=== PATIENT | female | born 1995 | race Caucasian/White ===

== ENCOUNTER → 2021-11-18 16:26 | Outpatient (BNVA) | payer OTHER, SELFPAY | PROVIDERS: Family Provider Family Medicine; Visit Provider Obstetrics & Gynecology | DX: N93.9 Abnormal uterine and vaginal bleeding, unspecified (principal) | CPT/HCPCS: 82670; 83001; 84146; 84443; 85025 ==

== ENCOUNTER → 2021-12-01 08:40 | Outpatient (BNVA) | payer OTHER, SELFPAY | PROVIDERS: Family Provider Family Medicine; Visit Provider Obstetrics & Gynecology | DX: N92.6 Irregular menstruation, unspecified (principal) | CPT/HCPCS: 76830 ==

== ENCOUNTER → 2022-05-14 12:54 | Outpatient (BNVA) | payer OTHER, BC, SELFPAY | PROVIDERS: Family Provider Family Medicine; Visit Provider Obstetrics & Gynecology | DX: N97.9 Female infertility, unspecified (principal); N83.291 Other ovarian cyst, right side | CPT/HCPCS: 76830; 76856 ==

== ENCOUNTER → 2022-05-21 08:16 | Outpatient (BNVA) | payer OTHER, SELFPAY | PROVIDERS: Family Provider Family Medicine; Visit Provider Obstetrics & Gynecology | DX: N97.9 Female infertility, unspecified (principal) | CPT/HCPCS: 84144 ==

== ENCOUNTER → 2022-06-15 09:35 | Outpatient (BNVA) | payer OTHER, BC, SELFPAY | PROVIDERS: Family Provider Family Medicine; Visit Provider Obstetrics & Gynecology | DX: N97.9 Female infertility, unspecified (principal) | CPT/HCPCS: 76830 ==

== ENCOUNTER 2022-06-22 09:56 | Outpatient (CLI) | payer OTHER, BC, SELFPAY ==
[2022-06-22 10:43] LABS: Progesterone 0.635 ng/mL
== END 2022-06-22 09:57 | disposition home or self-care (01) ==
PROVIDERS: Family Provider Family Medicine; Visit Provider Obstetrics & Gynecology
DX: N97.9 Female infertility, unspecified (principal)
CPT/HCPCS: 36415; 84144

== ENCOUNTER → 2022-07-16 08:47 | Outpatient (BNVA) | payer OTHER, BC, SELFPAY | PROVIDERS: Family Provider Family Medicine; Visit Provider Obstetrics & Gynecology | DX: N97.9 Female infertility, unspecified (principal) | CPT/HCPCS: 76830 ==

== ENCOUNTER → 2022-07-20 14:10 | Outpatient (BNVA) | payer OTHER, BC, SELFPAY | PROVIDERS: Family Provider Family Medicine; Visit Provider Obstetrics & Gynecology | DX: N97.9 Female infertility, unspecified (principal) | CPT/HCPCS: 76830 ==

== ENCOUNTER 2022-07-23 16:37 | Outpatient (CLI) | payer OTHER, BC, SELFPAY ==
[2022-07-23 17:54] LABS: Progesterone 5.24 ng/mL
== END 2022-07-23 16:38 | disposition home or self-care (01) ==
LOC: LAB 16:38
PROVIDERS: Visit Provider Obstetrics & Gynecology
DX: N97.9 Female infertility, unspecified (principal)
CPT/HCPCS: 84144

== ENCOUNTER → 2022-08-17 14:56 | Outpatient (BNVA) | payer OTHER, BC, SELFPAY | PROVIDERS: Visit Provider Obstetrics & Gynecology | DX: N97.9 Female infertility, unspecified (principal) | CPT/HCPCS: 76830 ==

== ENCOUNTER → 2022-08-24 10:02 | Outpatient (BNVA) | payer OTHER, BC, SELFPAY | PROVIDERS: Visit Provider Obstetrics & Gynecology | DX: N97.9 Female infertility, unspecified (principal); N92.6 Irregular menstruation, unspecified | CPT/HCPCS: 84144 ==

== ENCOUNTER 2024-03-20 09:51 | Outpatient (CLI) | payer BC, OTHER, SELFPAY ==
--- NOTE | 2024-03-20 10:08 | XR_ITS ---
WS: [id number] XR elbow RT min 3V* 12096 REASON FOR EXAM: PAIN IN R ELBOW FINDINGS: No fracture or focal bone lesion. No periosteal reaction. The joint spaces of the right elbow are intact and well preserved. No soft tissue abnormality. XR/XR elbow RT min 3V* [id number] IMPRESSION: No significant abnormality.
== END 2024-03-20 09:52 | disposition home or self-care (01) ==
LOC: LAB 09:52
PROVIDERS: Visit Provider Nurse Practitioner Family
DX: M25.521 Pain in right elbow (principal)
CPT/HCPCS: 73080